=== PATIENT | female | born 1965 | race Caucasian/White ===

== ENCOUNTER 2018-03-26 12:57 | Outpatient (REF) | payer MEDICAID, SELFPAY ==
--- NOTE | 2018-03-26 10:05 | PAPFT_PTH ---
PATIENT: Jenny Lambert LOC: AIDE U#:[id number] AGE/SX: 52/F ROOM: RE03/26/[address]: MERCED Cary : 1965 BED: DIS: 03/26/2018 SPEC #: [id number] RECD: 03/26/18 13:09 STATUS: DAMIAN REQ #: [id number] KOREY: 03/26/18 10:[address]: Sandie Riley DEPT: [facility] Cytology RECD BY: Kellen Schultz ENTERED: 03/26/18 13:09 SP TYPE: PAPFT OTHR DR: Carmelo Miles Tissues: 1 - CX/ENDOCX FOR PAP SMEARS Procedures: PAP THIN PREP/[facility] Screening HPV DNA PROBE Comments: [id number]
== END 2018-03-26 13:17 ==
LOC: LBN 12:57
PROVIDERS: PCP General Practice; Visit Provider Nurse Practitioner Family
DX: Z12.4 Encounter for screening for malignant neoplasm of cervix (principal); Z11.51 Encounter for screening for human papillomavirus (HPV)
CPT/HCPCS: 88142; 87624

== ENCOUNTER 2018-05-10 01:06 | Outpatient (CLI) | payer MEDICAID, SELFPAY ==
--- NOTE | 2018-05-10 15:00 | DI.MAMMO_ITS ---
SYMPTOM/DIAGNOSIS: SCREENING, Z12.31 MAMMOGRAMS: Mammograms were interpreted according to the usual protocol including computer analysis with CAD system, tomosynthesis and C view imaging. Comparison is made with exams from [id number]. The breasts are composed of heterogeneously dense fibroglandular tissue, breast density, Category C. No suspicious masses or suspicious microcalcifications are seen. There has been no significant change. IMPRESSION: Category 1, negative mammogram. Yearly screening mammography is recommended. [facility] ASSESSMENT OF FINDINGS: Negative. Category 1. Patient will receive a letter notifying them of these results. Bi-RADS category C. The breasts are heterogeneously dense, which may obscure small masses.
== END 2018-05-10 01:26 ==
PROVIDERS: PCP General Practice; Visit Provider Nurse Practitioner Family
DX: Z12.31 Encounter for screening mammogram for malignant neoplasm of breast (principal)
CPT/HCPCS: 77063; 77067

== ENCOUNTER 2020-11-22 16:36 | Outpatient (REF) | payer MEDICAID, SELFPAY ==
--- NOTE | 2020-11-22 16:00 | PAPFT_PTH ---
PATIENT: Jenny Lambert LOC: [facility] U#:[id number] AGE/SX: 55/F ROOM: RE11/22/[address]: MERCED Cary : 1965 BED: DIS: 11/22/2020 SPEC #: [id number] RECD: 11/22/20 18:31 STATUS: DAMIAN REQ #: [id number] KOREY: 11/22/20 16:[address]: Sandie Riley DEPT: [facility] Cytology RECD BY: Kellen Schultz ENTERED: 11/22/20 18:31 SP TYPE: PAPFT OTHR DR: Carmelo Miles Tissues: 1 - CX/ENDOCX FOR PAP SMEARS Procedures: PAP THIN PREP/[facility] Screening HPV DNA PROBE Comments: [id number]
== END 2020-11-22 16:37 | disposition home or self-care (01) ==
LOC: LBN 16:36
PROVIDERS: PCP General Practice; Visit Provider Nurse Practitioner Family
DX: Z12.4 Encounter for screening for malignant neoplasm of cervix (principal); Z11.51 Encounter for screening for human papillomavirus (HPV); Z01.419 Encounter for gynecological examination (general) (routine) without abnormal findings
CPT/HCPCS: 88142; 87624

== ENCOUNTER 2021-05-24 00:38 | Outpatient (CLI) | payer MEDICAID, SELFPAY ==
--- NOTE | 2021-05-24 06:00 | DI.MAMMO_ITS ---
Exam(s) MAMMO SCREENING EXAM: MAMMO SCREENING CLINICAL HISTORY: screening,z12.39 TECHNIQUE: Mammograms were interpreted according to the usual protocol including computer analysis w [facility] CAD system, tomosynthesis and C-view imaging. COMPARISON: FINDINGS: Breasts are heterogeneously dense. No dominant mass or clumped microcalcification is identified in e ither breast. The current examination is compared with previous examinations including May 2018 an d there has been no gross interval change in appearance in comparison with the prior studies. IMPRESSION: No specific evidence of malignancy at this time. Routine screening examinations are suggested at yea rly intervals in this age group according to the ACS ACR guidelines. BI-RADS Category 1 - Negative Breast Density - Category C - Heterogeneously dense
== END 2021-05-24 00:58 ==
PROVIDERS: PCP General Practice; Visit Provider Nurse Practitioner Family
DX: Z12.31 Encounter for screening mammogram for malignant neoplasm of breast (principal); R92.8 Other abnormal and inconclusive findings on diagnostic imaging of breast
CPT/HCPCS: 77063; 77067

== ENCOUNTER 2021-06-07 14:32 | Outpatient (CLI) | payer MEDICAID, SELFPAY ==
[2021-06-10 19:40] LABS: Beef IgE <0.35 kU/L; Cacao/Cocoa, IgE <0.35 kU/L; Codfish IgE <0.35 kU/L; Corn-Food IgE <0.35 kU/L; Egg Whole IgE <0.10 kU/L; Halibut IgE <0.35 kU/L; Mackerel IgE <0.35 kU/L; Milk, IgE <0.35 kU/L; Onion, IgE <0.35 kU/L; Peanut IgE <0.10 kU/L (<0.70); Salmon IgE <0.35 kU/L; Soybean IgE <0.35 kU/L; Trout IgE <0.35 kU/L; Tuna IgE <0.35 kU/L
[2021-06-18 11:14] LABS: CLASS 0; Perch Ocean IgE <0.35 kU/L (<0.35)
== END 2021-06-07 14:33 | disposition home or self-care (01) ==
LOC: LBO 14:34
PROVIDERS: PCP General Practice; Visit Provider Physician Assistant
DX: T78.3XXA Angioneurotic edema, initial encounter (principal); L50.9 Urticaria, unspecified
CPT/HCPCS: 36415; 86003